=== PATIENT | female | born 1990 | race Caucasian/White ===

== ENCOUNTER 2020-03-17 17:59 | Emergency (ER) | payer OTHER ==
[2020-03-17] MEDS ORDERED: HYDROcod/ACETAM 5/325 MG TABLET PO STA (18:12)
--- NOTE | 2020-03-17 18:13 | ED Physician Documentation ---
PD HPI MAJOR TRAUMA - Stated complaint Stated Complaint: FACE INJ - Chief complaint Chief Complaint: Trauma Hd/Nk - History obtained from History obtained from: Patient (29-year-old woman with no possibility of per her was hit by a soccer ball to the left face at home just prior to arrival. She had a nosebleed. She has significant left facial and nasal pain as well as jaw pain. No other injuries. No headache. No loss of cons ciousness.) Review of Systems Constitutional: reports: Reviewed and negative Ears: denies: Loss of hearing, Ear pain, Drainage/discharge Nose: reports: Epistaxis, Sinus pressure / pain PD PAST MEDICAL HISTORY - Present Medications Home Medications: Ambulatory Orders Medication Instructions Recorded Confirmed Oxycodone HCl/Acetaminophen 1 - 2 each PO Q6H PRN #20 tablet 03/17/20 [Percocet 5-325 mg Tablet] - Allergies Allergies/Adverse Reactions: Allergies Allergy/AdvReac Type Severity Reaction Status Date / Time No Known Drug Allergies Allergy Verified 03/17/20 18:02 PD ED PE NORMAL - Vitals Vital signs reviewed: Yes (She is tearful) - General General: Alert and oriented X 3, No acute distress - HEENT HEENT: Other (Swollen nasal mucosa on the left with a slight potential deformity of the nose which is also swollen. Slightly tender in the inferior orbital rim, no evidence of entrapment. 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, Normal speech Results - Vitals Vitals: Vital Signs - 24 hr 03/17/20 18:03 Temperature 37 C Heart Rate 85 Respiratory 20 Rate Blood Pressure 111/86 H O2 Saturation 98 Oxygen O2 Source Room air - Labs Labs: Laboratory Tests 03/17/20 03/17/20 18:53 19:05 WBC 9.2 RBC 4.51 Hgb 14.0 Hct 40.8 MCV 90.5 MCH 31.0 MCHC 34.3 RDW 11.9 L Plt Count 352 MPV 9.8 Neut # (Auto) 6.0 Lymph # (Auto) 2.1 Barnes # (Auto) 0.8 Eos # (Auto) 0.1 Baso # (Auto) 0.1 Absolute Nucleated RBC 0.00 Nucleated RBC % 0.0 Sodium 137 Potassium 3.5 Chloride 103 Carbon Dioxide 24 Anion Gap 10.0 BUN 12 Creatinine 0.6 Estimated GFR (MDRD) 120 Glucose 99 Calcium 9.1 - Rads (name of study) CT [facility]: EMP read contemporaneously (1. Mildly depressed mildly comminuted left anterior maxillary sinus wall fracture. 2. The left anterior maxillary sinus wall fracture extends into the superior maxillary sinus wall/left orbital floor though the fracture here is nondisplaced. This fracture extends to the lateral margin of the infraorbital foramen. 3. Probable very subtle fracture of the medial left orbital wall. 4. The orbital contents are normal. No orbital emphysema or hematoma. The globe is intact, no evidence of entrapment) PD MEDICAL DECISION MAKING - ED course ED course: Case was reviewed by phone with Dr. Miguel Oconnor, [facility] [place] and he looked at some of the pictures. [place] it would be a nonoperative fracture. Recommended pain control and follow-up in the office. Departure - Departure Disposition: 01 Home, Self Care Clinical Impression: Maxillary sinus fracture Qualifiers: Encounter type: initial encounter Fracture type: closed Qualified Code(s): S02.401A - Maxillary fracture, unspecified side, initial encounter for closed fracture Orbital floor fracture Qualifiers: Encounter type: initial encounter Fracture type: closed Laterality: left Qualified Code(s): S02.32XA - Fracture of orbital floor, left side, initial encounter for closed fracture Condition: Good Record reviewed to determine appropriate education?: Yes Instructions: ED Fx Face Follow-Up: MIGUEL OCONNOR [Physician No Access] - Prescriptions: Oxycodone HCl/Acetaminophen [Percocet 5-325 mg Tablet] 1 - 2 each PO Q6H PRN #20 tablet PRN Reason: pain Comments: The maxillofacial surgeon reviewed the x-rays and felt it would be a nonoperative fracture, that said you should follow-up with him in person, his phone number is on this form, call his office on Thursday. Return for new or worsening symptoms. Do not drink or drive while taking prescription pain medications. FORMAL CT READ: 1. Mildly depressed mildly comminuted left anterior maxillary sinus wall fracture. 2. The left anterior maxillary sinus wall fracture extends into the superior maxillary sinus wall/left orbital floor though the fracture here is nondisplaced. This fracture extends to the lateral margin of the infraorbital foramen. 3. Probable very subtle fracture of the medial left orbital wall. 4. The orbital contents are normal. No orbital emphysema or hematoma. The globe is intact and there is no proptosis. No herniation of orbital contents through the orbital floor fracture.
[2020-03-17] MEDS ORDERED: ONDANSETRON 4 MG/2 ML VIAL IVP STA (18:54)
[2020-03-17] MEDS ORDERED: HYDROmorphone 1 MG/ML CARPUJECT IVP STA (18:54)
[2020-03-17 19:29] LABS: BASOPHILS # (AUTO) 0.1 10^3/uL (0.0-0.1); BASOPHILS % (AUTO) 0.7 %; EOSINOPHILS # (AUTO) 0.1 10^3/uL (0.0-0.7); EOSINOPHILS % (AUTO) 1.5 %; LYMPHOCYTES # (AUTO) 2.1 10^3/uL (1.5-3.5); MEAN CORPUSCULAR HGB CONC 34.3 g/dL (32.0-36.0); MEAN CORPUSCULAR VOLUME 90.5 fL (81.0-99.0); MEAN PLATELET VOLUME 9.8 fL (7.9-10.8); MONOCYTES # (AUTO) 0.8 10^3/uL (0.0-1.0); MONOCYTES % (AUTO) 8.7 %; NEUTROPHILS % (AUTO) 65.6 %; PLT - PLATELET COUNT 352 10^3/uL (130-450); RED BLOOD COUNT 4.51 10^6/uL (4.20-5.40); RED CELL DISTRIBUTION WIDTH 11.9 % (12.0-15.0); WHITE BLOOD COUNT 9.2 x10^3/uL (4.8-10.8)
[2020-03-17 19:39] LABS: CALCIUM 9.1 mg/dL (8.5-10.3); CREATININE 0.6 mg/dL (0.4-1.0)
--- NOTE | 2020-03-17 19:51 | CT Report ---
Reason: left facial injuries Procedure Date: 03/17/2020 Accession Number: [id number] / [id number] Procedure: CT - MAXILLOFACIAL WO CPT Code: Final Report FULL RESULT: EXAM: CT MAXILLOFACIAL WITHOUT CONTRAST EXAM DATE: 03/17/2020 06:47 PM. CLINICAL HISTORY: Left facial injuries while playing soccer. COMPARISONS: None. TECHNIQUE: Thin-section axial images were acquired of the face without contrast. Post-processing: Coronal and sagittal reformats. Other: None. In accordance with CT protocol optimization, one or more of the following dose reduction techniques were utilized for this exam: automated exposure control, adjustment of mA and/or KV based on patient size, or use of iterative reconstructive technique. FINDINGS: Bones: There is a mildly depressed mildly comminuted fracture of the anterior wall of the left maxillary sinus. This fracture extends superiorly to the superior wall of the left maxillary sinus/orbital floor. The fracture plane extends to the lateral margin of the left infraorbital foramen and there is a tiny amount of gas in the infraorbital foramen reflecting maxillary sinus gas which has traversed the fracture plane. The left orbital floor fracture is nondisplaced and there is no herniation of orbital contents into the maxillary sinus. The orbital contents are normal and there is no orbital hematoma or emphysema. The globe is intact and there is no proptosis. There is very subtle buckling of the medial wall of the left orbit as seen on the coronal images on series 6 images 45-50 which is probably a tiny fracture. Left superior and lateral orbital perez are intact. Remaining osseous structures are intact. No further fracture elsewhere. Right-sided facial osseous structures are normal. Hemorrhage with an air-fluid level is present in the left maxillary sinus and there is moderate multifocal sinus mucosal thickening in the left ethmoid air cells. The bilateral frontal, bilateral sphenoid, right ethmoid, and right maxillary sinuses are clear. The mastoid air cells are clear. The skull base and frontal calvarium are intact. The mandible is intact. Temporomandibular alignment is anatomic. There is moderate rightward nasal septal deviation with a rightward pointing nasal septal spur. Visible brain parenchyma is grossly unremarkable. IMPRESSION: 1. Mildly depressed mildly comminuted left anterior maxillary sinus wall fracture. 2. The left anterior maxillary sinus wall fracture extends into the superior maxillary sinus wall/left orbital floor though the fracture here is nondisplaced. This fracture extends to the lateral margin of the infraorbital foramen. 3. Probable very subtle fracture of the medial left orbital wall. 4. The orbital contents are normal. No orbital emphysema or hematoma. The globe is intact and there is no proptosis. No herniation of orbital contents through the orbital floor fracture. [facility]
[2020-03-17] MEDS ORDERED: oxyCODONE/ACET 5/325 Prepack 4 PO STA (19:58)
[2020-03-17 20:10] LABS: HCG,QUALITATIVE BLOOD NEGATIVE
[2020-03-17 20:25] VITALS: BP 103/60
== END 2020-03-17 20:30 | disposition home or self-care (01) ==
LOC: ED 17:59
DX: S02.40DA Maxillary fracture, left side, initial encounter for closed fracture (principal); S02.32XA Fracture of orbital floor, left side, initial encounter for closed fracture; W21.02XA Struck by soccer ball, initial encounter; Y92.009 Unspecified place in unspecified non-institutional (private) residence as the place of occurrence of the external cause
CPT/HCPCS: 36415; 70486; 80048; 84703; 85025; 96374; 96375; 99284; A9270; J1170